=== PATIENT | male | born 1965 | race Caucasian/White ===

== ENCOUNTER 2018-09-22 06:08 | Day surgery (SDC) | END 2018-09-22 13:07 | disposition home or self-care (01) ==

== ENCOUNTER → 2019-06-05 | Outpatient (CLI) | payer OTHER ==
[~2019-06-05] MED LIST: ASPI-817 PO; ATOR20TA38 PO; EMTR1TAB11 PO; IOHEXOL 100 ML ONE; LISI2.5T59 PO; METOPROLOL 5 MG INJ ONE; SITA1TBM4 PO; SOD CHLORIDE 0.9% 100 ML ONE
== END | disposition home or self-care (01) ==
LOC: C/S 09:01
PROVIDERS: ATTEND Internal Medicine
DX: R93.1 Abnormal findings on diagnostic imaging of heart and coronary circulation (principal); R07.9 Chest pain, unspecified
CPT/HCPCS: 75571; 75574; Q9967; Z7610